=== PATIENT | female | born 1950 | race Caucasian/White ===

== ENCOUNTER → 2021-07-15 | Outpatient (CLI) | payer OTHER ==
[~2021-07-15] MED LIST: CEPH500 PO; LEVFLO500 PO; LISHYD2025 PO; NAPR250 PO; OLMESARTAN-HCT1 EAC2 PO; PHENA200 PO; PRAVASTATIN SOD10 MG PO; RXHYDACE PO; SERT25 PO; Zantac150 MG PO
[2021-07-15 13:53] LABS: BASOPHILS ABSOLUTE AUTO 0.03 K/mm3 (0.00-0.23); BASOPHILS PERCENT AUTO 0 % (0-2); EOSINOPHILS ABSOLUTE AUTO 0.12 K/mm3 (0.00-0.68); EOSINOPHILS PERCENT AUTO 2 % (0-6); Hematocrit 42.7 % (33.0-51.0); Hemoglobin 13.9 g/dL (11.5-16.0); IMMATURE GRAN ABSOLUTE AUTO 0.04 K/mm3 (0.00-0.10); IMMATURE GRAN PERCENT AUTO 1 % (0-1); LYMPHOCYTES ABSOLUTE AUTO 2.32 K/mm3 (0.84-5.20); LYMPHOCYTES PERCENT AUTO 30 % (21-46); MONOCYTES ABSOLUTE AUTO 0.73 K/mm3 (0.16-1.47); MONOCYTES PERCENT AUTO 10 % (4-13); Mean Corpuscular HGB Conc 32.6 g/dL (31.5-36.5); Mean Corpuscular Volume 98 fL (80-100); Mean Platelet Volume 10.9 fL (9.1-12.4); NEUTROPHILS PERCENT AUTO 58 % (41-73); Platelet Count 187 K/mm3 (150-400); RDW Coefficient Variation 13.7 % (11.7-14.2); RDW Standard Deviation 49.8 fL (35.1-46.3); Red Blood Cell Count 4.35 M/mm3 (3.80-5.20); White Blood Cell Count 7.64 K/mm3 (4.00-11.30)
[2021-07-15 14:03] LABS: Alanine Aminotransfer (ALT/SGP 39 U/L (12-78); Albumin, Blood 3.4 g/dL (3.4-5.0); Albumin/Globulin Ratio 0.9 (0.8-1.8); Alk Phos 67 U/L (40-126); Anion Gap 8 mmol/L (6-16); Aspartate Aminotrans (AST/SGOT 27 U/L (12-37); Bilirubin, Total 0.8 mg/dL (0.1-1.0); Blood Urea Nitrogen 24 mg/dL (8-24); Bun/Creatinine Ratio 26.1 (12.0-20.0); CO2, Blood 26 mmol/L (21-32); Calcium, Blood 9.1 mg/dL (8.5-10.1); Chloride, Blood 103 mmol/L (98-108); Creatinine, Blood 0.92 mg/dL (0.40-1.00); Globulin, Blood 3.7 g/dL (2.2-4.0); Glomerular Filtration Rate >60 (60-); Glucose, Blood 100 mg/dL (70-99); Potassium, Blood 3.9 mmol/L (3.5-5.5); Sodium, Blood 137 mmol/L (136-145); Total Protein, Blood 7.1 g/dL (6.4-8.2)
== END ==
LOC: LAB SHORT 13:48
PROVIDERS: Physician Assistant
DX: R07.9 Chest pain, unspecified (principal)
CPT/HCPCS: 80053; 83880; 84484; 85025

== ENCOUNTER 2022-11-20 13:06 | Day surgery (SDC) | payer OTHER ==
[~2022-11-20] VITALS: Ht 157.5 cm; Wt 149.2 kg
[2022-11-20] MEDS ORDERED: ZOLOFT50 MG PO (13:22)
[2022-11-20] MEDS ORDERED: LOSARTAN-HCTZ1 EAC5 PO (13:23)
[2022-11-20] MEDS ORDERED: ELIQUIS5 M3 PO (13:23)
[2022-11-20] MEDS ORDERED: POTCHL20ER PO (13:24)
[2022-11-20] MEDS ORDERED: AMLODIPINE BESYL5 MG PO (13:24)
[2022-11-20] MEDS ORDERED: METOPROLOL ER SUCCIN (13:25)
[2022-11-20] MEDS ORDERED: PRAVASTATIN SOD20 MG PO (13:26)
[2022-11-20] MEDS ORDERED: FUROSEMIDE40 MG PO (13:26)
--- NOTE | 2022-11-20 13:31 | NUR ---
11/20/22 1331 Krystle Gardner TETRACAINE ADMINISTERED TO THE R EYE AT 1328, PLEDGET PLACED IN R EYE AT 1329
[2022-11-20 14:48] VITALS: BP 120/84
--- NOTE | 2022-11-20 16:20 | NUR ---
11/20/22 1620 Eleuterio Roche IV REMOVED INTACT. SITE WNL.
== END 2022-11-20 15:06 | disposition home or self-care (01) ==
LOC: ORSCSDS 13:06
PROVIDERS: Ophthalmology
PROC: 08RJ3JZ Replacement of Right Lens with Synthetic Substitute, Percutaneous Approach (ICD-10-PCS; principal; 2022-11-20 14:30)
DX: H25.13 Age-related nuclear cataract, bilateral (principal); H52.201 Unspecified astigmatism, right eye; I12.9 Hypertensive chronic kidney disease with stage 1 through stage 4 chronic kidney disease, or unspecified chronic kidney disease; N18.9 Chronic kidney disease, unspecified; I48.91 Unspecified atrial fibrillation; E78.5 Hyperlipidemia, unspecified; G47.33 Obstructive sleep apnea (adult) (pediatric); Z79.899 Other long term (current) drug therapy; E66.01 Morbid (severe) obesity due to excess calories; Z68.44 Body mass index [BMI] 60.0-69.9, adult
CPT/HCPCS: J2250; J3010; J3301; J7040; V2632

== ENCOUNTER 2022-11-27 13:13 | Day surgery (SDC) | payer OTHER ==
[~2022-11-27] VITALS: Ht 160 cm; Wt 148.7 kg
[~2022-11-27 13:13] MED LIST changes: +AMLODIPINE BESYL5 MG PO; +ELIQUIS5 M3 PO; +FUROSEMIDE40 MG PO; +LOSARTAN-HCTZ1 EAC5 PO; +METOPROLOL ER SUCCIN; +POTCHL20ER PO; +PRAVASTATIN SOD20 MG PO; +ZOLOFT50 MG PO
--- NOTE | 2022-11-27 13:56 | NUR ---
11/27/22 1356 Farheen Weathers 1341 MARISA 1346
--- NOTE | 2022-11-27 14:47 | NUR ---
11/27/22 1447 Kamilla Pinto LENS IMPLANTED BY DR. HENNING, GEOVANNY AND GEOVANNY MODEL#[id number] DIOPTER +8.00 SE 3.00D CYL, #[phone] EXP. 10/25/2023
[2022-11-27 15:04] VITALS: BP 127/82
== END 2022-11-27 15:19 | disposition home or self-care (01) ==
LOC: ORSCSDS 13:13
PROVIDERS: Ophthalmology
PROC: 08RK3JZ Replacement of Left Lens with Synthetic Substitute, Percutaneous Approach (ICD-10-PCS; principal; 2022-11-27 14:30)
DX: H25.12 Age-related nuclear cataract, left eye (principal); H52.202 Unspecified astigmatism, left eye; Z96.1 Presence of intraocular lens; I10 Essential (primary) hypertension; I48.91 Unspecified atrial fibrillation; Z79.01 Long term (current) use of anticoagulants; G47.33 Obstructive sleep apnea (adult) (pediatric); E66.01 Morbid (severe) obesity due to excess calories; Z68.43 Body mass index [BMI] 50.0-59.9, adult; Z79.899 Other long term (current) drug therapy
CPT/HCPCS: J2250; J3010; J3301; J7040; V2636

== ENCOUNTER 2025-02-01 23:56 | Emergency (ER) | payer OTHER ==
[~2025-02-01] VITALS: Ht 157.5 cm; Wt 149.7 kg
[2025-02-02] MEDS ORDERED: Robaxin750 MG PO (00:32)
[2025-02-02] MEDS ORDERED: Voltaren100 GM TOP (00:32)
[2025-02-02 00:41] VITALS: BP 126/85
== END 2025-02-02 00:52 | disposition home or self-care (01) ==
LOC: ER 23:56
DX: M17.11 Unilateral primary osteoarthritis, right knee (principal); K21.9 Gastro-esophageal reflux disease without esophagitis; I10 Essential (primary) hypertension; E11.9 Type 2 diabetes mellitus without complications; Z88.2 Allergy status to sulfonamides; Z79.01 Long term (current) use of anticoagulants; Z79.899 Other long term (current) drug therapy
CPT/HCPCS: 73560-RT; 99283-25; A9270